=== PATIENT | female | born 1950 | race Caucasian/White ===

== ENCOUNTER 2017-03-12 07:57 | Emergency (ER) | payer MEDICARE ==
[2017-03-12 08:21] VITALS: BP 161/61
--- NOTE | 2017-03-12 09:05 | UC ---
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 and it's real tight right in there and, uh, just sorta' achy." Intermittent headache, "yellow" nasal congestion/discharge, sore throat initially (now improving), mostly nonproductive cough, substernal "tight " feeling but denies pain, myalgias, chills, and tired for two to three days. No known fever. Denies SOB. Patient is retired. PCP Micha Brody." no wheezing. gets the upper chest tightness with the cough only. on plavix for recent surgery for PVD. + sinus pain and teeth hurt. has had sinsuitis and sx feel consistent. denies allergies to any abx here with her . BSs were only slightly higher this AM b/c of being ill. sx started several days ago. no copd. non-smoker. never needed inhalers or prednisone for sx like this in past. - History of Current Complaint Chief Complaint: UCRespiratory Stated Complaint: RESPITORY Time Seen by Provider: 03/12/17 08:02 - Allergies/Home Medications Allergies/Adverse Reactions: Allergies Allergy/AdvReac Type Severity Reaction Status Date / Time Iodinated Contrast Media Allergy Severe Anaphylatic Verified 03/12/17 08:16 [CONTRAST DYE] Shock Influenza Vaccines Allergy Hives Verified 03/12/17 08:16 Meperidine [From Demerol HCl] AdvReac Severe Vomiting Verified 03/12/17 08:16 Sertraline [From Zoloft] AdvReac Severe Vomiting Verified 03/12/17 08:16 Nitroglycerin AdvReac Headache Verified 03/12/17 08:16 [From Nitroglycerin Transdermal System] Home Medications: Home Medications Fiber [Fiber Formula] 1 cap PO DAILY 03/12/17 [History Confirmed 03/12/17] PMH/Surg Hx/FS Hx/Imm Hx Previously Healthy: Yes Endocrine History: Diabetes Cardiovascular History: Other - PVD, lipids Other Cardiovascular History: PVD Psychological History: Depression - Surgical History Surgical History: Yes Surgery Procedure, Year, and Place: Veins, Tonsillectomy, Appendectomy, Herniorrhaphy-TUBAL - Family History Known Family History: Positive: Cardiac Disease - Social History Alcohol Use: None Substance Use Type: None Smoking Status (MU): Former Smoker Type: Cigarettes Amount Used/How Often: 1 1/2 PPD Length of Time of Smoking/Using Tobacco: 34 Years (Quit for 10 Years) Have You Smoked in the Last Year: No When Did the Patient Quit Smoking/Using Tobacco: 2009 - Immunization History Most Recent Influenza Vaccination: Allergic Most Recent Tetanus Shot: 08/26/15 Tdap Most Recent Pneumonia Vaccination: unknown Review of Systems Constitutional: Chills Skin: Negative Eyes: Negative ENT: Dental Pain, Sinus Congestion, Sinus Pain/Tenderness Respiratory: Cough - no wheezing Cardiovascular: Negative Gastrointestinal: Negative Genitourinary: Negative Motor: Negative Neurovascular: Negative Musculoskeletal: Negative Neurological: Negative Psychological: Negative Is Patient Immunocompromised?: No All Other Systems Reviewed And Are Negative: Yes Physical Exam Triage Information Reviewed: Yes Appearance: No Pain Distress, Well-Nourished, Ill-Appearing - mild distress Vital Signs: Initial Vital Signs Temp 98.2 F 03/12/17 08:12 Pulse 66 03/12/17 08:12 Resp 16 03/12/17 08:12 BP 161/61 03/12/17 08:12 Pulse Ox 96 03/12/17 08:12 Vital Signs Reviewed: Yes Eye Exam: Normal ENT: Positive: Pharyngeal erythema - +PND, TMs normal, Other: - + b/l maxillary tenderness. Negative: Tonsillar swelling, Tonsillar exudate, Muffled/hoarse voice Neck exam: Normal Neck: Positive: Supple, Nontender, No Lymphadenopathy Respiratory Exam: Normal Respiratory: Positive: Lungs clear, No respiratory distress, No accessory muscle use, Decreased breath sounds - mild b/l, Other: - slightly tender with palpation over upper mid chest. Negative: Crackles, Rhonchi, Stridor, Wheezing Cardiovascular Exam: Normal Cardiovascular: Positive: RRR, No Murmur, Pulses Normal Abdominal Exam: Normal Abdomen Description: Positive: Nontender, Soft Musculoskeletal Exam: Normal Neurological Exam: Normal Psychological Exam: Normal Skin Exam: Normal UC Diagnostic Evaluation - Laboratory O2 Sat by Pulse Oximetry: 96 Respiratory Course/Dx - Differential Dx/Diagnosis Differential Diagnosis/HQI/PQRI: Asthma, Bronchitis, Laryngitis, Sinusitis Provider Diagnoses: Sinusitis, bronchitis, DM Discharge - Discharge Plan Condition: Stable Disposition: HOME Prescriptions: Albuterol HFA INHALER* [Ventolin HFA Inhaler*] 2 puff INH Q4H PRN #1 mdi PRN Reason: Cough Amoxicillin PO (*) [Amoxicillin 875 MG (*)] 875 mg PO BID #20 tab Patient Education Materials: Sinusitis (ED), Acute Bronchitis (ED) Referrals: Micha Brody MD [Primary Care Provider] - 4 Days Additional Instructions: Make sure to take a probiotic daily while on antibiotics to help prevent a potential complication of antibiotic use called c diff. Some well known brands that can be found OTC are florastor, align and [employer]. Make sure to complete the entire prescription unless advised otherwise by your health care provider. -watch your blood sugars closely
== END 2017-03-12 09:17 | disposition home or self-care (01) ==
LOC: UCCORT 07:57
DX: J40 Bronchitis, not specified as acute or chronic (principal); J32.9 Chronic sinusitis, unspecified; Z91.041 Radiographic dye allergy status; Z88.7 Allergy status to serum and vaccine; Z88.5 Allergy status to narcotic agent; Z88.8 Allergy status to other drugs, medicaments and biological substances; E11.9 Type 2 diabetes mellitus without complications; Z87.891 Personal history of nicotine dependence
CPT/HCPCS: 99212; G0463

== ENCOUNTER 2017-05-02 08:42 | Emergency (ER) | payer MEDICARE ==
[2017-05-02 09:01] VITALS: BP 157/67
--- NOTE | 2017-05-02 09:16 | UC ---
Respiratory Complaint HPI - HPI Summary HPI Summary: cough x 7 days + chest congestion and tightness, cough is dry, worse at night, + nasal congestion no fever, + chills, body aches, sob - History of Current Complaint Chief Complaint: UCGeneralIllness Stated Complaint: COUGH CONGESTION Time Seen by Provider: 05/02/17 08:52 Hx Obtained From: Patient Onset/Duration: Gradual Onset, Lasting Days - 7, Still Present Timing: Constant Severity Initially: Moderate Severity Currently: Moderate Character: Cough: Nonproductive Aggravating Factors: Exertion, Deep Breaths Alleviating Factors: Nothing Associated Signs And Symptoms: Positive: Dyspnea, Chills, URI, Nasal Congestion. Negative: Fever, Pleuritic Chest Pain, Calf Swelling - Allergies/Home Medications Allergies/Adverse Reactions: Allergies Allergy/AdvReac Type Severity Reaction Status Date / Time Iodinated Contrast Media Allergy Severe Anaphylatic Verified 05/02/17 09:01 [CONTRAST DYE] Shock Influenza Vaccines Allergy Hives Verified 05/02/17 09:01 Meperidine [From Demerol HCl] AdvReac Severe Vomiting Verified 05/02/17 09:01 Sertraline [From Zoloft] AdvReac Severe Vomiting Verified 05/02/17 09:01 Nitroglycerin AdvReac Headache Verified 05/02/17 09:01 [From Nitroglycerin Transdermal System] PMH/Surg Hx/FS Hx/Imm Hx Endocrine History: Diabetes Cardiovascular History: Hypertension Respiratory History: COPD - Surgical History Surgical History: Yes Surgery Procedure, Year, and Place: Veins, Tonsillectomy, Appendectomy, Herniorrhaphy-TUBAL - Family History Known Family History: Positive: Unknown, Cardiac Disease - Social History Alcohol Use: None Substance Use Type: None Smoking Status (MU): Former Smoker Type: Cigarettes Amount Used/How Often: 1 1/2 PPD Length of Time of Smoking/Using Tobacco: 34 Years (Quit for 10 Years) Have You Smoked in the Last Year: No When Did the Patient Quit Smoking/Using Tobacco: 2009 - Immunization History Most Recent Influenza Vaccination: Allergic Most Recent Tetanus Shot: 08/26/15 Tdap Most Recent Pneumonia Vaccination: unknown Review of Systems Constitutional: Chills, Fatigue Skin: Negative Eyes: Negative ENT: Nasal Discharge Respiratory: Shortness Of Breath, Cough Cardiovascular: Negative Gastrointestinal: Negative Is Patient Immunocompromised?: No All Other Systems Reviewed And Are Negative: Yes Physical Exam Triage Information Reviewed: Yes Appearance: Well-Appearing, No Pain Distress, Well-Nourished Vital Signs: Initial Vital Signs Temp 97.3 F 05/02/17 08:56 Pulse 73 05/02/17 08:56 Resp 18 05/02/17 08:56 BP 157/67 05/02/17 08:56 Pulse Ox 98 05/02/17 08:56 Vital Signs Reviewed: Yes Eyes: Positive: Conjunctiva Clear ENT: Positive: Normal ENT inspection, Hearing grossly normal, Pharynx normal Neck: Positive: Supple, Nontender, No Lymphadenopathy Respiratory: Positive: Chest non-tender, Decreased breath sounds Cardiovascular: Positive: RRR, No Murmur, Pulses Normal Musculoskeletal Exam: Normal Skin Exam: Normal UC Diagnostic Evaluation - Laboratory O2 Sat by Pulse Oximetry: 98 Respiratory Course/Dx - Differential Dx/Diagnosis Provider Diagnoses: bronchitis Discharge - Discharge Plan Condition: Stable Disposition: HOME Prescriptions: DOXYcycline CAP(*) [DOXYcycline 100MG CAP(*)] 100 mg PO BID #20 cap Guaifenesin-Codeine [Cheratussin AC] 10 syp PO Q8H PRN #120 ml MDD 30 ML PRN Reason: Cough Patient Education Materials: Acute Bronchitis (ED) Referrals: Micha Brody MD [Primary Care Provider] - 7 Days
== END 2017-05-02 09:26 | disposition home or self-care (01) ==
LOC: UCCORT 08:42
DX: J40 Bronchitis, not specified as acute or chronic (principal); E11.9 Type 2 diabetes mellitus without complications; I10 Essential (primary) hypertension; J44.9 Chronic obstructive pulmonary disease, unspecified; Z88.5 Allergy status to narcotic agent; Z88.7 Allergy status to serum and vaccine; Z88.8 Allergy status to other drugs, medicaments and biological substances; Z91.041 Radiographic dye allergy status; Z87.891 Personal history of nicotine dependence
CPT/HCPCS: 99212; G0463

== ENCOUNTER 2019-07-25 08:19 | Emergency (ER) | payer MEDICARE ==
[2019-07-25 08:46] VITALS: BP 163/72
--- NOTE | 2019-07-25 09:30 | UC ---
Skin Complaint HPI - HPI Summary HPI Summary: 69-year-old woman comes in with a chief complaint of a rash on the left side of the top of her scalp and also left eye irritation and drainage. The rash which is burning and itching started several days ago. Overnight she started having left eye irritation and clear drainage. No complaint of any upper respiratory tract infection symptoms. No known trauma to the eye. 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 Espinosa. - History of Current Complaint Chief Complaint: UCEye Time Seen by Provider: 07/25/19 09:16 Stated Complaint: LT EYE, SKIN COMPLAINT Pain Intensity: 5 - Allergy/Home Medications Allergies/Adverse Reactions: Allergies Allergy/AdvReac Type Severity Reaction Status Date / Time Iodinated Contrast Media Allergy Severe Anaphylatic Verified 07/25/19 08:50 Shock meperidine [From Demerol] Allergy Severe Vomiting Verified 07/25/19 08:50 sertraline Allergy Severe Vomiting Verified 07/25/19 08:50 nitroglycerin Allergy headache Verified 07/25/19 08:50 from patch, vomiting flu vaccine Allergy Severe Hives Uncoded 07/25/19 08:50 Home Medications: Home Medications Lisinopril/HCTZ 20/12.5(NF) [Zestoretic 20/12.5(NF)] 2 tab PO DAILY 02/10/16 [ History Confirmed 07/25/19] Metoprolol Tartrate TAB* [Lopressor TAB*] 50 mg PO BID 02/10/16 [History Confirmed 07/25/19] Simvastatin [Zocor 40 MG (NF)] 40 mg PO QPM 02/10/16 [History Confirmed 07/25/19 ] metFORMIN* [Glucophage 500 MG TAB *] 500 mg PO BID 02/10/16 [History Confirmed 07/25/19] Insulin NPH Human Isophane [Novolin N 100 units/ml 10 ml VIAL] 100 units SUBCUT BID 02/11/16 [History Confirmed 07/25/19] Insulin Regular, Human [Novolin R] 45 units SUBCUT BID 02/11/16 [History Confirmed 07/25/19] Aspirin EC TAB* [Ecotrin EC Low Dose 81 MG*] 81 mg PO DAILY 05/12/16 [History Confirmed 07/25/19] Citalopram TAB* [CeleXA TAB*] 10 mg PO DAILY 07/25/19 [History Confirmed ] Ibuprofen TAB* [Motrin TAB* 800 MG] 800 mg PO ONCE PRN 07/25/19 [History Confirmed 07/25/19] Mupirocin 1 applic TOPICAL BID #22 gm 07/25/19 [Rx] Pregabalin [Lyrica] 50 mg PO QPM 07/25/19 [History Confirmed 07/25/19] Tobramycin 0.3% OPHTH.DEVON* 1 drop LEFT EYE Q4H #1 btl 07/25/19 [Rx] Valacyclovir HCl [Valacyclovir] 1,000 mg PO TID #21 tablet 07/25/19 [Rx] PMH/Surg Hx/FS Hx/Imm Hx Previously Healthy: Yes Endocrine History: Diabetes - Surgical History Surgical History: Yes Surgery Procedure, Year, and Place: b/l leg veins opening, Tonsillectomy, Appendectomy, Herniorrhaphy-TUBAL; b/l cataracts Summer 2018-[place] - Family History Known Family History: Positive: Unknown, Cardiac Disease - Social History Alcohol Use: None Substance Use Type: None Smoking Status (MU): Former Smoker Type: Cigarettes Amount Used/How Often: 1 1/2 PPD Length of Time of Smoking/Using Tobacco: 34 Years (Quit for 10 Years) Have You Smoked in the Last Year: No When Did the Patient Quit Smoking/Using Tobacco: 2009 - Immunization History Most Recent Influenza Vaccination: Allergic Most Recent Tetanus Shot: 08/26/15 Tdap Most Recent Pneumonia Vaccination: unknown Review of Systems All Other Systems Reviewed And Are Negative: Yes Constitutional: Positive: Negative Skin: Positive: Other - SEE HPI Eyes: Positive: Drainage - LEFT, Eye Redness - LEFT ENT: Positive: Negative Respiratory: Positive: Negative Cardiovascular: Positive: Negative Motor: Positive: Negative Neurovascular: Positive: Negative Musculoskeletal: Positive: Negative Neurological/Mental Status: Positive: Negative Psychological: Positive: Negative Is Patient Immunocompromised?: No Physical Exam Triage Information Reviewed: Yes Appearance: Well-Appearing, No Pain Distress, Well-Nourished Vital Signs: Initial Vital Signs Temp 98.1 F 07/25/19 08:36 Pulse 73 07/25/19 08:36 Resp 18 07/25/19 08:36 BP 163/72 07/25/19 08:36 Pulse Ox 96 07/25/19 08:36 Vital Signs Reviewed: Yes Eyes: Positive: Other: - Left eye has scleral injection and there is clear drainage. PERRLA EOMI. ENT: Positive: Pharynx normal, TMs normal Neck: Positive: Supple Respiratory: Positive: Lungs clear, Normal breath sounds, No respiratory distress Cardiovascular: Positive: RRR Musculoskeletal: Positive: Strength Intact, ROM Intact Neurological: Positive: Alert, Muscle Tone Normal Psychological: Positive: Age Appropriate Behavior Skin: Positive: Other - There is erythema slightly raised rash on the left scalp. There is no rash on the bridge of the nose or the forehead. Course/Dx - Course Course Of Treatment: Findings are most consistent with shingles with potential involvement of the left eye. I have prescribed valacyclovir to treat shingles. Patient sees an turntable engineer here in [facility] Dr. Espinosa. The patient is going to go to the turntable engineer directly from our clinic so that she get further evaluation of her left eye to determine whether or not the left eye is affected and 4 appropriate treatment. I also prescribed tobramycin as an antibacterial to be used in the eye if the conjunctivitis is not viral. Also prescribe mupirocin to be used on the rash to avoid any bacterial complications. - Diagnoses Provider Diagnosis: Shingles, Left conjunctivitis Discharge ED - Sign-Out/Discharge Documenting (check all that apply): Patient Departure All imaging exams completed and their final reports reviewed: No Studies - Discharge Plan Condition: Stable Disposition: HOME Prescriptions: Mupirocin 1 applic TOPICAL BID #22 gm Tobramycin 0.3% OPHTH.DEVON* 1 drop LEFT EYE Q4H #1 btl Valacyclovir HCl [Valacyclovir] 1,000 mg PO TID #21 tablet Patient Education Materials: Shingles (ED), Conjunctivitis (ED) Referrals: Micha Brody MD [Primary Care Provider] - Samanta Alejandro MD [Medical Doctor] - Additional Instructions: FOLLOW UP WITH OPHTHALMOLOGY TODAY FOR FURTHER EVALUATION OF POSSIBLE LEFT EYE SHINGLES INFECTION. GET REEVALUATED SOONER IF NOT IMPROVED OR WORSE OR ANY QUESTIONS OR CONCERNS. - Billing Disposition and Condition Condition: STABLE Disposition: Home
== END 2019-07-25 09:44 | disposition home or self-care (01) ==
LOC: UCCORT 08:19
DX: H10.9 Unspecified conjunctivitis (principal); B02.9 Zoster without complications; E11.9 Type 2 diabetes mellitus without complications; Z91.041 Radiographic dye allergy status; Z88.7 Allergy status to serum and vaccine; Z88.5 Allergy status to narcotic agent; Z88.8 Allergy status to other drugs, medicaments and biological substances; Z79.82 Long term (current) use of aspirin; Z79.84 Long term (current) use of oral hypoglycemic drugs; Z87.891 Personal history of nicotine dependence
CPT/HCPCS: 99212; G0463